=== PATIENT | female | born 1970 | race Caucasian/White ===

== ENCOUNTER 2024-09-20 12:18 | Emergency (ER) | payer OTHER, SELFPAY ==
--- OUTSIDE RECORDS SUMMARY | 2024-09-20 12:20 | XMS_ITS | Clinical Summary ---
Author Organization [facility] Address [address] [place] [address] Care Team Providers Care Pharmacy Student Name Role Phone Gabriela Pappas MD Primary Care Provider + Allergies Active Allergy Reactions Criticality Noted Date Comments Cat Dander Runny Nose 05/19/2017 Watery eyes. Pollen Extracts Runny Nose 05/19/2017 Itchy nose, watery eyes. Medications naproxen (ALEVE) 220 mg tablet Take 1 tablet by mouth every 8 hours if needed. 0 6 Active cetirizine (ZYRTEC) 10 mg tablet Take 10 mg by mouth once daily. 7 Active calcium polycarbophil (FIBERCON) 625 mg tablet Take 1 tablet by mouth once daily. 0 7 Active multivitamin (MVI) tablet Take 1 tablet by mouth once daily. 0 7 Active inhalational spacing deviceIndications: Mild intermittent asthma without complication (HC) For home use. 1 Each 2 Active escitalopram oxalate (LEXAPRO) 5 mg tabletIndications: Perimenopausal vasomotor symptoms Take 1 Tablet (5 mg) by mouth every morning. 90 Tablet 3 4 Active albuterol HFA (PRO-AIR; VENTOLIN; PROVENTIL) 90 mcg/actuation inhalerIndications :History of COVID-19 Inhale 1-2 Puffs by mouth every 4 hours if needed for Shortness of Breath 1st choice. 1 Each 3 4 Active ketoconazole 2% topical (NIZORAL) creamIndications:T inea versicolor Apply topically to affected area(s) once daily. 30 g 5 4 Active Active Problems Problem Noted Date Diagnosed Date Mild intermittent asthma without complication Preventative health care 07/13/2013 Environmental allergies 07/13/2013 Overview (07/13/2013): animals Encounters Date Type Department Care Team Description 09/20/2024 Nurse Triage [facility] [address] [place] [address] Gabriela Pappas MD Back Pain from Last 3 Months Immunizations Immunization Administration Dates Next Due COVID-19 VACCINE SPIKEVAX (M ODERNA 50MCG/0.5ML) 12YO+ PFS 08/29/2023 COVID-19 vaccine (Moderna 50mcg/0.5mL) 12YO+ BIVALENT PF, MDV 05/26/2022 COVID-19 vaccine ([employer]-Bio NTech 30mcg/0.3mL) PF, MDV 11/14/2020,10/24/2020 Influenza Virus, Unspecified 06/09/2005,06/19/20 04 Influenza, IIV3 (Age >=3 years) 04/28/2012,05/22,05/27/1998 Influenza, IIV4 08/29/2023,,03/16/2019,2018,05/07/2016 Influenza, IIV4 (=>6mos) MDV 04/23/2020 Td (Age >=7 Years) 07/03/2000,04/29/2000 Tdap 02/02/2021,05/22/2010 Zoster (Shingrix-RZV, recombinant) 08/29/2023, Family History Medical History Relation Name Comments Good Health Brother Colon polyps Father Hyperlipidemia Father borderline Heart Disease Maternal Grandfather heart attack Other Maternal Grandfather dementi a Stroke Maternal Grandfather at leas t 3 Other Maternal Grandmother Glaucom a; alzheimer's Cancer-breast Mother doing well Dementia Mother Thyroid Disease Mother Diabetes Paternal Grandfather Heart Disease Paternal Grandfather Stroke Paternal Grandfather Colon polyps Paternal Grandmother when ol [place] Stroke Paternal Grandmother Good Health Sister some Rheumatolo gical disorder Good Health Son 1 Horace Other Son 1 Horace mild cleft [place] Allergies Son 2 Edd Psychiatric illness Son 2 Edd possible autism Relation Name Status Comments Brother Alive Father Alive Maternal Grandfather (Age mid 70 's) complications stroke Maternal Grandmother (Age 91) co mplications of alzheimer's Mother Paternal Grandfather (Age 84) [place] Paternal Grandmother (Age 90's) stroke Sister Alive Son 1 Horace Alive Son 2 Edd Alive Social History Tobacco Use Types Packs/Day Years Used Date Smoking Tobacco: Never Smokeless Tobacco: Never Alcohol Use Standard Drinks/Week Comments Yes 0 (1 standard drink = 0.6 oz pure alcohol) 2-3 times a year, occ glass of wine PHQ-2 Answer Date Recorded PHQ-2 TOTAL SCORE 2 08/29/2023 Social Connections Answer Date Recorded Do you often feel lonely or isolated from those around you? 0 08/29/2023 Financial Resource Strain Answer Date R ecorded Difficulty of Paying Living Expenses 3 08/29/2023 Difficulty of Paying Living Expenses Not on file 08/29/2023 Food Insecurity Answer Date Recorded Do you worry your food will run out before you are able to buy more? 1 08/29/2023 Transportation Needs Answer Date Record ed Does lack of transportation keep you from medica l appointments? 1 08/29/2023 Does lack of transportation keep you from work, meetings or getting things that you need? 1 08/29/2023 Housing Stability Answer Date Recorded What is your housing situation today? 1 08/29/2023 Utilities Answer Date Recorded Do you have trouble paying f or utilities (for example, heat, electricity, water, phone)? 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 No issues with delivery. Last Filed Vital Signs Vital Sign Reading Time Taken Comments Blood Pressure 114/72 08/29/2023 12:20 PM PROFESSOR OF BIOSTATISTICS Pulse 80 08/29/2023 12:20 PM PROFESSOR OF BIOSTATISTICS Temperature 37 C (98.6 F) 08/21/2021 11:49 AM PROFESSOR OF BIOSTATISTICS Respiratory Rate 10 04/03/2012 5:31 PM CDT Oxygen Saturation 99% 08/21/2021 11: 47 AM PROFESSOR OF BIOSTATISTICS Inhaled Oxygen Concentration - - Weight 81.1 kg (178 lb 12.8 oz) 024 12:20 PM PROFESSOR OF BIOSTATISTICS Height 161.3 cm (5' 3.5) 08/29/2023 12 :20 PM PROFESSOR OF BIOSTATISTICS Body Mass Index 31.18 08/29/2023 12:20 PM PROFESSOR OF BIOSTATISTICS Plan of Treatment Health Maintenance Due Date Last Done Comments HIV for age 15-65 1985 Hepatitis C screening for ag e 18-79 1988 Pneumococcal series for age 50+ (1 of 1 - PCV) 2020 Mammogram for age 45-75 07/20/2023 07/20/19, 04/06/2021, 06/03/2017, Additional history exists COVID-19 vaccine series ( season) 2024 08/29/2023, 05/26/2022, 11/14/2020, Additional history exists Influenza Vaccine (#1) 2024 , 05/26/2022, 04/23/2020, Additional history exists BMI (ht and wt on same day) for age 18+ 08/29/2024 08/29/2023, 05/26/2022, 02/02/2021, Additional history exists Depression screening for age 12+ 08/29/2024 08/29/2023, 02/02/2021, 08/30/2018, Additional history exists Lipids for age 45-75 02/02/2026 02/02/2021, 05/19/2017, 07/13/2013, Additional history exists Pap test for age 21-65 02/02/2026 , 02/02/2021, 05/07/2016, Additional history exists Tetanus booster 02/02/2031 02/02/2021, 05/04, 07/03/2000, Additional history exists Colonoscopy through age 75 03/23/2031 03/23/2021 Tdap Completed 02/02/2021, 05/22/2010 Zoster (shingles) series for age 50+ Completed 08/29/2023, 05/26/2022 Procedures Procedure Name Priority Date/Time Associated Diagnosis Comments XR MAMMO DAVID BILAT SCREEN Routine 07/20/2022 4:52 PM PROFESSOR OF BIOSTATISTICS Encounter for screening for malignant neoplasm of breast, unspecified screening modality SCAN-COLONOSCOPY 03/23/2021 1:00 PM CDT LIPID PANEL W REFLEX MEASURED LDL Routine 02/02/2021 8:55 AM CDT Routine general medical examination at a [facility] care facility OCCUPATIONAL HEALTH PHYSICIAN THIN PREP PAP SCREEN IMAGED Routine 02/02/2021 8:35 AM CDT Cervical cancer screening from Last 3 Months or Most Recently Relevant to Health Maintenance Results * XR MAMMO DAVID BILAT SCREEN (07/20/2022 4:52 PM PROFESSOR OF BIOSTATISTICS) Anatomical Region Laterality Modality BREASTS, Breast Left, Breast Right Bilateral Mammography Impressions 07/21/2022 12:32 PM PROFESSOR OF BIOSTATISTICS There is no radiographic evidence for malignancy. Recommend annual mammograms. MAMMOGRAM ASSESSMENT: ACR 2 Benign PATIENTS: You will also receive a letter with your examination results in an easy to read format. If you have questions about your results, please contact your referring provider. Narrative 07/21/2022 12:32 PM PROFESSOR OF BIOSTATISTICS For Patients: As a result of the 21st Century Cures Act, medical imaging exams and procedure reports are released immediately into your electronic medical record. You may view this report before your referring provider. If you have questions, please contact your health care provider. XR MAMMO DAVID BILAT SCREEN [[id number]] CLINICAL HISTORY: This is an asymptomatic 51 y.o. patient. INDICATION FOR EXAM: Mammogram Screening. TECHNIQUE: CC & MLO views were obtained. This study was evaluated with the assistance of Computer-Aided Detection. Breast Tomosynthesis was used in interpretation. COMPARISON FILMS: Yes 04/06/21 05/23/17 FINDINGS: The breasts are heterogeneously dense, which may obscure small masses. No suspicious masses or microcalcifications. There are benign appearing mass(es). us Gabriela Pappas MD MAMMO Final Re sult * SCAN-COLONOSCOPY (03/23/2021 1:00 PM CDT) Narrative Procedure Note Sanjeev Larson MD - 03/23/2021 12:03 PM CDT [facility], [address], [place] [address] Patient Name: Carlyle Alba Gender: Female Exam Date: 03/23/2021 Visit Number: [id number] Age: 50 Years 6 Months Date of : 1970 Attending MD: Sanjeev Larson MD Medical Record#: [id number] ----- Procedure: Colonoscopy Indications: Family history of polyps in patient's multiple relatives. Referring MD: Gabriela Pappas MD Primary MD: Gabriela Pappas MD Medications: Admitting Medications: 0.9% Normal Saline at TKO Intra Procedure Medications: Patient received monitored anesthesia care. Complications: No immediate complications Procedure: An examination of the heart and lungs was performed and found to be withinacceptable limits. The patient was therefore deemed a reasonablecandidate for endoscopy and monitored anesthesia care. The risks and benefits of the procedure were explained to the patient.After obtaining informed consent, the patient received monitoredanesthesia care and I passed the scope without difficulty via the rectum to the ileum. The appendiceal orificeand ic valve were identified. The scope was retroflexed during theexamination The quality of the prep was good (Miralax/Gatorade/2 tabletsBisacodyl/Magnesium Citrate). This was a complete examination throughout the entire colon. Findings: Diverticulosis. Location: - sigmoid. Size: small. Quantity:few. Anal canal: internal hemorrhoid(s) Remainder of the exam is normal. Impression: Family history of polyps in the colon Diverticulosis of colon without diverticulitis Hemorrhoids, internal Exam otherwise normal Plan: Repeat colonoscopy in 5 years. We will attempt to contact you at appropriate intervals via U.S. mail. Wemay not be able to find you or contact you at that time, therefore youshould know that the responsibility for following our recommendation restswith you. If you don't hear from us at the time your procedure is due,please contact our office to schedule an appointment. If your contactinformation should change, please contact our office so that we can updateyour records. Electronically signed by: Sanjeev Larson MD 03/23/2021 Vital Signs: Date Time Systolic Diastolic Height Weight BMI 03/23/2021 12:31 PM 99 62 63 in 167.60 29.70 03/23/2021 12:49 PM 101 65 NA 167.60 29.70 Race: Ethnicity: Not or Preferred Language: Italian cc: Gabriela Pappas MD cc: Gabriela Pappas MD [facility] [phone] us Sanjeev Larson MD OTHER Final R esult * LIPID PANEL W REFLEX MEASURED LDL (02/02/2021 8:55 AM CDT) CHOLESTEROL,TOTAL 174 100 - 199 mg/dL 02/02/2021 3:32 PM CDT [facility] TRIGLYCERIDES 49 <150 mg/dL 02/02/2021 3:32 PM CDT [facility] HDL CHOLESTEROL 65 >40 mg/dL 3:32 PM CDT [facility] NON-HDL CHOLESTEROL 109 <145 mg/dl 02/02/2021 3:32 PM CDT [facility] CHOL/HDL RATIO 2.68 <4.50 02/02/2021 3:32 PM CDT [facility] LDL CHOLESTEROL 99 <=130 mg/dL 02/02/2021 3:32 PM CDT [facility] VLDL CHOLESTEROL 10 mg/dL 02/03/20 3:32 PM CDT [facility] PROVIDER ORDERED STATUS FASTING 02/02/2021 3:32 PM CDT [facility] Blood BLOOD SPECIMEN / Unknown Venipuncture / Unknown 02/02/2021 8:55 AM CDT 02/02/2021 8:55 AM CDT us Gabriela Pappas MD CHEMISTRY Final Re sult [facility] [address] [place] [address], [place] * OCCUPATIONAL HEALTH PHYSICIAN THIN PREP PAP SCREEN IMAGED (02/02/2021 8:35 AM CDT) Case Report Gynecologic Cytology Report Case: [id number] Authorizing Provider: Gabriela Pappas MD Collected: 02/02/2021 0835 Ordering Location: [facility], [facility] Received: 02/02/2021 0842 Clinic First Screen: Odette Mcmillan Specimen: OCCUPATIONAL HEALTH PHYSICIAN ThinPrep Vial Screening, Cervical 02/11/2021 8:49 AM CDT [facility] INTERPRETATION/ RESULT NEGATIVE FOR INTRAEPITHELIAL LESION OR MALIGNANCY (NIL) (none) 02/11/2021 8:49 AM CDT [facility] IMEN ADEQUACY Satisfactory for evaluation Endocervical component present 02/11/2021 8:49 AM CDT [facility] HPV REQUEST HPV and PAP 02/11/2021 8:49 AM CDT [facility] Date of LMP January 28, 2021 02/11/2021 8:49 AM CDT [facility] Last Pap Date 05/07/16 02/11/2021 8:49 AM CDT [facility] Last Pap Result NIL 8:49 AM CDT [facility] Abnormal Pap or [place] Bx in last 5 years No 02/11/2021 8:49 AM CDT [facility] Menstrual Status Regular Periods 02/11/2021 8:49 AM CDT [facility] [place] Bx Done Today No 02/11/2021 8:49 AM CDT [facility] Additional Information None given 02/11/2021 8:49 AM CDT [facility] Comment: Cytology is screened at [facility] - [address], [place] [address] and [facility] - [address], [place] [address] and [facility] - [address] [place] [id number] Interpreted at [facility] - [address] [place] [id number] Automated Review Successful 02/11/2021 8:49 AM T [facility] Comment:Specimen processed s uccessfully by automated fugitive detective device, ThinPrep Imaging System, [employer] ANCILLARY TESTING OCCUPATIONAL HEALTH PHYSICIAN HPV Ordered, Please see separate report 02/11/2021 8:49 AM CDT [facility] Note The pap test is a screening technique, not a diagnostic procedure. It is used primarily to screen for squamous cancers and precursor lesions. Published studies have shown that it is subject to both false negative and false positive results. The pap test should not be used as the sole means to diagnose or exclude pre-malignant and malignant lesions. 02/11/2021 8:49 AM CDT [facility] Other (Cervical) Non-Blood / Unknown 02/02/2021 8:35 AM CDT 02/02/2021 8:42 AM CDT us Gabriela Pappas MD PATHOLOGY/CYTOLOGY Final Result [facility] [address] [place] [address], [place] from Last 3 Months or Most Recently Relevant to Health Maintenance Care Teams Pharmacy Student Relationship Specialty Start [place] [address] [place] [address] PCP - General Family Practice 07/19/13
[2024-09-20 12:38] VITALS: BP 122/77; PULSE 79; RESP 16; TEMP 37.1; O2SAT 100; BMI 31.9
[2024-09-20 13:23] LABS: Appearance Urine Clear (Clear); Bilirubin Urine Negative (Negative); Blood Urine Negative (Negative); Color Urine Light yellow (Yellow); Glucose Urine Negative (Negative); Ketones Urine Negative (Negative); Leukocyte Esterase Urine 1+ (Negative); Nitrite Urine Negative (Negative); Protein Urine Negative (Negative); Urobilinogen Urine 0.2 (0.2-1.0)
[2024-09-20 13:38] LABS: RBC Urine 0-2 (0-2); WBC Urine 0-2 (0-5)
[2024-09-20 14:32] VITALS: BP 110/64; PULSE 68; RESP 20; O2SAT 99
--- NOTE | 2024-09-20 14:43 | CRLHL7_ITS ---
For Patients: As a result of the 21st Century Cures Act, medical imaging exams and procedure reports are released immediately into your electronic medical record. You may view this report before your referring provider. If you have questions, please contact your health care provider. INDICATION: Right flank pain COMPARISON: None TECHNIQUE: CT examination of the abdomen and pelvis was performed without intravenous contrast. Thin section axial images were obtained from the lung bases through the pubic symphysis. Oral contrast was not administered. Please note that all CT scans at this facility use dose modulation, iterative reconstruction, and/or weight-based dosing when appropriate to reduce radiation dose to as low as reasonably achievable. FINDINGS: LUNG BASES: The lung bases as visualized appear normal.The heart size is normal at the lung bases. LIVER/BILIARY SYSTEM:The liver is normal in size and configuration given the lack of intravenous contrast. There is no visible focal mass and there is no intra- or extra hepatic biliary ductal dilatation.The gallbladder is distended. There is no clearly visible wall thickening or pericholecystic fluid. There is a stone within the gallbladder. The extrahepatic duct is prominent measuring 9 millimeters from the coronal plane and there is a small calcification distally which may be within the distal duct or more likely recently passed into the duodenum. Consider sonography for further evaluation. ADRENALS: Normal non-contrast appearance KIDNEYS, URETERS and BLADDER:The kidneys appear normal given lack of intravenous contrast. No visible mass, calculus or hydronephrosis. The ureters and bladder as visualized appear normal. SPLEEN:Normal non-contrast appearance. PANCREAS: Normal non-contrast appearance. RETROPERITONEUM and MESENTERY: There is no mass, adenopathy or aortic aneurysm. GASTROINTESTINAL SYSTEM: There is no evidence of diverticulitis, colitis, mechanical obstruction, or appendicitis. The small bowel as visualized appears normal. PELVIS: No mass, adenopathy or free fluid. OSSEOUS STRUCTURES and ABDOMINAL WALL: There is an age-appropriate appearance of the osseous structures.Tiny fat containing umbilical hernia OTHER: No free fluid or free air. IMPRESSION: 1. Distended gallbladder but no wall thickening or pericholecystic fluid noted. Solitary small stone in the gallbladder. Mildly dilated extrahepatic duct and possible stone at or near the distal duct, probably within the duodenum. Findings suggest the possibility of a recently passed stone. Consider sonography of the biliary system for further evaluation. 2. Examination is otherwise overall unremarkable without other potential visible cause for pain Please note that all CT scans at this facility use dose modulation, iterative reconstruction, and/or weight-based dosing when appropriate to reduce radiation dose to as low as reasonably achievable. Dictated by Christiano Randall MD @ 09/20/2024 3:20:46 PM (Electronically Signed)
--- NOTE | 2024-09-20 15:02 | ED_ITS ---
HPI - General Adult General Chief complaint: Flank Pain Stated complaint: Kidney Stones Time Seen by Provider: 09/20/24 13:28 History of Present Illness HPI narrative: This 54-year-old female comes in reporting pain in her right flank that began yesterday. She has had some associated nausea with vomiting. She does not report any injury event or strenuous activity. She does not have any symptoms of dysuria and reports no personal or family history of kidney stones. She arrives here with normal vital signs. Related Data Home Medications ?Medication ?Instructions ?Recorded ?Confirmed escitalopram oxalate 5 mg tablet 5 mg PO QDAY 09/03/24 09/20/24 (Lexapro) Previous Rx's ?Medication ?Instructions ?Recorded hydrocodone 5 mg-acetaminophen 325 1 tab PO Q4-6H PRN pain #15 tabs 09/20/24 mg tablet ketorolac 10 mg tablet 10 mg PO TID 5 days #15 tabs 09/20/24 ondansetron HCl 4 mg tablet 4 mg PO Q6H #15 tabs 09/20/24 Allergies Allergy/AdvReac Type Severity Reaction Status Date / Time No Known Drug Allergies Allergy Verified 09/20/24 12:37 Review of Systems Status of ROS: Reports: 10 or more systems reviewed and unremarkable except as noted in History and below Narrative: Constitutional: No fevers, no weight gain or loss. Eyes: No discharge. No vision changes. HENT: No congestion, no sore throat, no ear pain. Cardiovascular: No chest pain, no palpitations. Respiratory: No shortness of breath, no wheezes, no cough. Gastrointestinal: No abdominal pain, no diarrhea. Right flank pain. Genitourinary: No dysuria, no hematuria. Musculoskeletal: Normal range of motion. Skin: No rashes, no pruritis. Neurological: No dizziness, weakness, sensory change, speech change. Endo/Heme/Allergies: No bruising or bleeding. No polydipsia. Pysch: no suicidality, no anxiety, no insomnia. All other systems reviewed and are negative. Exam Narrative: Exam Narrative: Constitutional: Well-developed, well-nourished, no acute distress. HEENT: Normocephalic, atraumatic. Neck: Normal range of motion. Nontender. Supple. Heart: Regular. No murmurs. Normal rate. Intact distal pulses. Lungs: Clear to auscultation. No chest discomfort. No wheezes, rhonchi, or rales. Abdomen: Normal bowel sounds. Nontender currently. No rebound tenderness. Genitalia: Deferred. Back: No midline tenderness. Normal range of motion. Extremities: Normal range of motion. No injury. Skin: Intact. No rash. Warm. No erythema or pallor. Neurologic: No altered sensation. No weakness. Alert and oriented. Psychiatric: No suicidality. No anxiety or depression. No insomnia. Nursing notes and vitals signs are reviewed. Const: Vital Signs, click to edit/add: Vital Signs - 24 hr 09/20/24 12:38 09/20/24 14:32 Temperature 98.8 F Pulse Rate [Pulse Oximeter] 79 68 Respiratory Rate 16 20 Blood Pressure [Ri t Upper Arm] 122/77 110/64 Pulse Oximetry 100 99 Oxygen Delivery Me thod Room Air Room Air Course Vital Signs Vital signs: Initial Vital Signs Temperature 98.8 F 09/20/24 12:38 Temperature Source Temporal Artery Scan 09/20/24 12:38 Pulse Rate 79 09/20/24 12:38 Pulse Rhythm Regular 09/20/24 12:38 Respiratory Rate 16 09/20/24 12:38 Blood Pressure 122/77 09/20/24 12:38 Blood Pressure Mean 92 09/20/24 12:38 Blood Pressure Position Sitting 09/20/24 12:38 Pulse Oximetry 100 09/20/24 12:38 Oxygen Delivery Method Room Air 09/20/24 12:38 Vital Signs Temperature 98.8 F 09/20/24 12:38 Pulse Rate 79 09/20/24 12:38 Respiratory Rate 16 09/20/24 12:38 Blood Pressure 122/77 09/20/24 12:38 Pulse Oximetry 100 09/20/24 12:38 Oxygen Delivery Method Room Air 09/20/24 12:38 Temperature 98.8 F 09/20/24 12:38 Pulse Rate 68 09/20/24 14:32 Respiratory Rate 20 09/20/24 14:32 Blood Pressure 110/64 09/20/24 14:32 Pulse Oximetry 99 09/20/24 14:32 Oxygen Delivery Method Room Air 09/20/24 14:32 Medical Decision Making MDM Narrative Medical decision making narrative: This patient came in with right flank pain sometimes extending around along her ribs on the right side. She wonders if she might be having a kidney stone. She did have some nausea and vomiting. Currently her pain is more minimal but she did receive an oral dose of Toradol. CT scan of the abdomen and pelvis is obtained and shows no sign of kidney stone however there is a stone in the gallbladder and the radiologist is suspecting that she may have passed another stone through the common bile duct into her bowel. I relayed these findings with the patient and recommended that she follow-up with surgery clinic for ongoing management. She is okay to be discharged home. I did provide prescriptions for Toradol, [place], and Flexeril. Lab Data Labs: Lab Results 09/20/24 Range/Units 13:15 Urine Color Light yellow (Yellow) Urine Appearance Clear (Clear) Urine pH 6.0 (5.0-8.5) Ur Specific [place] 1.010 (1.000-1.030) Urine Protein Negative (Negative) Urine Glucose (UA) Negative (Negative) Urine Ketones Negative (Negative) Urine Blood Negative (Negative) Urine Nitrite Negative (Negative) Urine Bilirubin Negative (Negative) Urine Urobilinogen 0.2 (0.2-1.0) Ur Leukocyte Esterase 1+ A (Negative) Urine RBC 0-2 (0-2) Urine WBC 0-2 (0-5) Ur Squamous Epith Cells None (None-Few) Urine Bacteria None (None) Imaging Data CT scan - abdomen: Radiologist's impression: 1. Distended gallbladder but no wall thickening or pericholecystic fluid noted. Solitary small stone in the gallbladder. Mildly dilated extrahepatic duct and possible stone at or near the distal duct, probably within the duodenum. Findings suggest the possibility of a recently passed stone. Consider sonography of the biliary system for further evaluation. 2. Examination is otherwise overall unremarkable without other potential visible cause for pain Discharge Plan Discharge Clinical Impression: Cholelithiasis Patient Disposition: Home w/ Parent or Adult Condition: Stable Additional Instructions: Take medication as needed and indicated. Follow-up with surgery clinic for ongoing management. Call [phone] for appointment. Return if worsening. Prescriptions: New hydrocodone-acetaminophen 5-325 mg tablet 1 tab PO Q4-6H PRN (Reason: pain) Qty: 15 0RF ondansetron HCl 4 mg tablet 4 mg PO Q6H Qty: 15 0RF ketorolac 10 mg tablet 10 mg PO TID 5 Days Qty: 15 0RF No Action escitalopram oxalate [Lexapro] 5 mg tablet 5 mg PO QDAY Follow Up/Referrals: Gabriela Pappas MD [Primary Care Provider] - Stand Alone Forms: [employer] Info Instructions
--- OUTSIDE RECORDS SUMMARY | 2024-09-20 15:16 | XMS_ITS | Clinical Summary ---
Author Organization [facility] Address [address] [place] [id number] Care Team Providers Care Refrigerator Assembler Name Role Phone Gabriela Pappas MD Primary [...] Department Care Team Description 09/20/2024 Nurse Triage [facility] [address] [place] [address] Gabriela Pappas MD Back Pain from Last 3 Months Immunizations Immunization Administration Dates Next Due COVID-19 VACCINE SPIKEVAX (M ODERNA 50MCG/0.5ML) 12YO+ PFS 08/29/2023 COVID-19 vaccine (Moderna 50mcg/0.5mL) 12YO+ BIVALENT PF, MDV 05/26/2022 COVID-19 vaccine (Present-Bio NTech 30mcg/0.3mL) PF, MDV 11/14/2020,10/24/2020 Influenza Virus, [...] Horace Other Son 1 Horace mild cleft bois forte te Allergies Son 2 Edd Psychiatric illness [...] on file Legal Sex Female 8:01 AM PRESS BOX CUSTODIAN Gender Identity Not on file Sexual Orientation [...] Comments Blood Pressure 114/72 08/29/2023 12:20 PM PRESS BOX CUSTODIAN Pulse 80 08/29/2023 12:20 PM PRESS BOX CUSTODIAN Temperature 37 C (98.6 F) 08/21/2021 11:49 AM PRESS BOX CUSTODIAN Respiratory Rate 10 04/03/2012 5:31 PM CDT Oxygen Saturation 99% 08/21/2021 11: 47 AM PRESS BOX CUSTODIAN Inhaled Oxygen Concentration - - Weight 81.1 kg (178 lb 12.8 oz) 024 12:20 PM PRESS BOX CUSTODIAN Height 161.3 cm (5' 3.5) 08/29/2023 12 :20 PM PRESS BOX CUSTODIAN Body Mass Index 31.18 08/29/2023 12:20 PM PRESS BOX CUSTODIAN Plan of Treatment Health Maintenance Due Date [...] DAVID BILAT SCREEN Routine 07/20/2022 4:52 PM PRESS BOX CUSTODIAN Encounter for screening for malignant neoplasm of breast, unspecified screening modality SCAN-COLONOSCOPY 03/23/2021 1:00 PM CDT LIPID PANEL W REFLEX MEASURED LDL Routine 02/02/2021 8:55 AM CDT Routine general medical examination at a [facility] care facility EMPLOYEE RELATIONS DIRECTOR THIN PREP PAP SCREEN IMAGED Routine 02/02/2021 8:35 AM CDT Cervical cancer screening from Last 3 Months or Most Recently Relevant to Health Maintenance Results * XR MAMMO DAVID BILAT SCREEN (07/20/2022 4:52 PM PRESS BOX CUSTODIAN) Anatomical Region Laterality Modality BREASTS, Breast Left, Breast Right Bilateral Mammography Impressions 07/21/2022 12:32 PM PRESS BOX CUSTODIAN There is no radiographic evidence for malignancy. Recommend annual mammograms. MAMMOGRAM ASSESSMENT: ACR 2 Benign PATIENTS: You will also receive a letter with your examination results in an easy to read format. If you have questions about your results, please contact your referring provider. Narrative 07/21/2022 12:32 PM PRESS BOX CUSTODIAN For Patients: As a result of the 21st Century Cures Act, medical imaging exams and procedure reports are released immediately into your electronic medical record. You may view this report before your referring provider. If you have questions, please contact your health care provider. XR MAMMO DAVID BILAT SCREEN [[id number]] CLINICAL HISTORY: This is an asymptomatic 51 [...] Larson MD - 03/23/2021 12:03 PM CDT [facility] [facility] [facility], [address], [place] [address] Patient Name: Carlyle Alba Gender: Female Exam Date: 03/23/2021 Visit Number: [id number] Age: 50 Years 6 Months Date of : 1970 Attending MD: Sanjeev Larson MD Medical Record#: [id number] ----- Procedure: Colonoscopy Indications: Family history of [...] 29.70 Race: Ethnicity: Not or Preferred Language: Albanian cc: Gabriela Pappas MD cc: Gabriela Pappas MD [facility] [phone] us Sanjeev Larson MD OTHER Final R esult * LIPID PANEL W REFLEX MEASURED LDL (02/02/2021 8:55 AM CDT) CHOLESTEROL,TOTAL 174 100 - 199 mg/dL 02/02/2021 3:32 PM CDT [facility] TRIGLYCERIDES 49 <150 mg/dL 02/02/2021 3:32 PM CDT [facility] HDL CHOLESTEROL 65 >40 mg/dL 3:32 PM CDT [facility] NON-HDL CHOLESTEROL 109 <145 mg/dl 02/02/2021 3:32 PM CDT [facility] CHOL/HDL RATIO 2.68 <4.50 02/02/2021 3:32 PM CDT [facility] LDL CHOLESTEROL 99 <=130 mg/dL 02/02/2021 3:32 PM CDT [facility] VLDL CHOLESTEROL 10 mg/dL 02/03/20 3:32 PM CDT [facility] PROVIDER ORDERED STATUS FASTING 02/02/2021 3:32 PM CDT [facility] Blood BLOOD SPECIMEN / Unknown Venipuncture / Unknown 02/02/2021 8:55 AM CDT 02/02/2021 8:55 AM CDT us Gabriela Pappas MD CHEMISTRY Final Re sult [facility] [address] [place] [address], [place] * EMPLOYEE RELATIONS DIRECTOR THIN PREP PAP SCREEN IMAGED (02/02/2021 8:35 AM CDT) Case Report Gynecologic Cytology Report Case: [id number] Authorizing Provider: Gabriela Pappas MD Collected: 02/02/2021 0835 Ordering Location: [facility] Received: 02/02/2021 0842 Clinic First Screen: Odette Mcmillan Specimen: EMPLOYEE RELATIONS DIRECTOR ThinPrep Vial Screening, Cervical 02/11/2021 8:49 AM CDT [facility] INTERPRETATION/ RESULT NEGATIVE FOR INTRAEPITHELIAL LESION OR MALIGNANCY (NIL) (none) 02/11/2021 8:49 AM CDT [facility] IMEN ADEQUACY Satisfactory for evaluation Endocervical component present 02/11/2021 8:49 AM CDT [facility] HPV REQUEST HPV and PAP 02/11/2021 8:49 AM CDT [facility] Date of LMP January 28, 2021 02/11/2021 8:49 AM CDT [facility] Last Pap Date 05/07/16 02/11/2021 8:49 AM CDT [facility] Last Pap Result NIL 8:49 AM CDT [facility] Abnormal Pap or Friendship Bx in last 5 years No 02/11/2021 8:49 AM CDT [facility] Menstrual Status Regular Periods 02/11/2021 8:49 AM CDT [facility] Friendship Bx Done Today No 02/11/2021 8:49 AM CDT [facility] Additional Information None given 02/11/2021 8:49 AM CDT [facility] Comment: Cytology is screened at [facility] - [address], [place] [address] and [facility] - [address], [place] [address] and [facility] - [address] [place] [id number] Interpreted at [facility] - [address] [place] [id number] Automated Review Successful 02/11/2021 8:49 AM T [facility] Comment:Specimen processed s uccessfully by automated talent consultant device, ThinPrep Imaging System, [employer] ANCILLARY TESTING EMPLOYEE RELATIONS DIRECTOR HPV Ordered, Please see separate report 02/11/2021 8:49 AM CDT [facility] Note The pap test is a [...] and malignant lesions. 02/11/2021 8:49 AM CDT [facility] Other (Cervical) Non-Blood / Unknown 02/02/2021 8:35 AM CDT 02/02/2021 8:42 AM CDT us Gabriela Pappas MD PATHOLOGY/CYTOLOGY Final Result [facility] [address] [place] [address], [place] from Last 3 Months or Most Recently Relevant to Health Maintenance Care Teams Refrigerator Assembler Relationship Specialty [place] [address] [place] [address] PCP - General Family Practice 07/19/13
== END 2024-09-20 16:52 | disposition home or self-care (01) ==
PROVIDERS: Emergency Provider Emergency Medicine Emergency Medical Services; PCP Family Medicine
DX: K80.20 Calculus of gallbladder without cholecystitis without obstruction (principal)
CPT/HCPCS: 74176; 81001; 81003; 87086; 99284

== ENCOUNTER 2025-06-24 13:08 | Emergency (ER) | payer OTHER, SELFPAY ==
[2025-06-24] VITALS (18 sets, daily range): BP systolic 102–106; BP diastolic 59–71; PULSE 74–120; RESP 16–20; TEMP 37.2; O2SAT 91–100; BMI 30.3
--- OUTSIDE RECORDS SUMMARY | 2025-06-24 13:16 | XMS_ITS | Clinical Summary ---
Author Organization [facility] Address [address] [place] [address] Care Team Providers Care Certified Nurses Aide Name Role Phone Dory Ocampo MD Primary Care Provider Allergies Active AllergyReactionsCriticalityNoted DateCommentsCat DanderRunny Nose 05/19/2017 Watery eyes. Pollen ExtractsRunny Nose05/19/2017 Itchy nose, watery eyes. Medications MedicationSigDispense QuantityRefillsLast FilledStart DateEnd DateStatus calcium polycarbophil (FIBERCON) 625 mg tablet Take 1 tablet by mouth once daily.Active multivitamin (MVI) tablet Take 1 tablet by mouth once daily.Active escitalopram oxalate 5 mg tablet Indications:Perimenopausal vasomotor symptomsTake 0.5 Tablets (2.5 mg) by mouth once daily in the morning. 45 Tablet 5Active albuterol HFA 90 mcg/actuation inhaler Indications:Mild intermittent asthma without complication (HC)Inhale 1-2 Puffs by mouth every 4 hours if needed for Shortness Of Breath or Wheezing.10/31/2024 Active Active Problems ProblemNoted DateDiagnosed DatePerimenopausal vasomotor xxvyuhzj96/30/2025 Aorzemanetskio91/24/2025Mild intermittent asthma without kfsigasxjfaw11/26/2024 Environmental /10/2014 Overview (07/13/2013): animals Encounters DateTypeDepartmentCare LwchAnxfskerirj24/22/2025Nurse Triage [facility] [place], [place] [address] [place] [address] Dory Ocampo MD Back Painfrom Last 3 Months Immunizations ImmunizationAdministration DatesNext DueCOVID-19 VACCINE SPIKEVAX (MODERNA 50MCG/0.5ML) 12YO+ PFS4COVID-19 vaccine (Moderna 50mcg/0.5mL) 12YO+ BIVALENT PF, MDV12COVID-19 vaccine (Pfizer-BioNTech 30mcg/0.3mL) PF, MDV 11/14/2020,10/24/2020Influenza Virus, Apkkvliular12/07/2005,06/19/2004Influenza, IIV3 (Age >=3 years)04/28/2012,05/22/2010,05/27/1998Influenza, VVZ936, 05/26/2022,03/16/2019,08/30/2018,05/07/2016Influenza, IIV4 (=>6mos) MDV 04/23/2020Pneumococcal Conj 20-valent (Prevnar 20)10/31/2024Td (Age >=7 Years) 07/03/2000,04/29/2000Tdap02/02/2021,05/22/2010Zoster (Shingrix-RZV, recombinant) 08/29/2023,05/26/2022 Family History Medical HistoryRelationNameCommentsGood HealthBrotherBrettColon polypsFather dennyHyperlipidemiaFatherdennyborderlineAlzheimer's diseaseMaternal Grandfather PaulCholelithiasisMaternal GrandfatherPaulDrug AbuseMaternal GrandmotherBerniece Rheum arthritisMaternal GrandmotherBernieceAnxiety disorderMotherKaren Cancer-breastMotherKarenDementiaMotherKarenDepressionMotherKarenThyroid Disease MotherKarenDiabetesPaternal GrandfatherLawrenceHeart DiseasePaternal Grandfather LawrenceStrokePaternal GrandfatherLawrenceColon polypsPaternal GrandmotherMarvel when olderStrokePaternal GrandmotherMarvelGood HealthSisterMichelleLupusSister MaryjoGood HealthSon 1DylanAllergiesSon 2BrycePsychiatric illnessSon 2Bryce AutismRelationNameStatusCommentsBrotherBrettAliveFatherdennyAliveMaternal GrandfatherPaulDeceasedcomplications strokeMaternal GrandmotherBernieceDeceased (Age 91)complications of alzheimer'sMotherKarenDeceased (Age 80)Paternal GrandfatherLawrenceDeceasedstrokePaternal GrandmotherMarvelDeceasedstrokeSister MichelleAliveSon 1DylanAliveSon 2BryceAlive Social History Tobacco UseTypesPacks/DayYears UsedDateSmoking Tobacco: NeverSmokeless Tobacco: NeverAlcohol UseStandard Drinks/WeekCommentsYes0 (1 standard drink = 0.6 oz pure alcohol)2-3 times a year, occ glass of winePHQ-2AnswerDate RecordedPHQ-2 TOTAL XXWKU788Social ConnectionsAnswerDate RecordedDo you often feel lonely or isolated from those around you?Financial Resource StrainAnswerDate RecordedDifficulty of Paying Living Ocefzwbc115/23/2025Difficulty of Paying Living ExpensesNot on file09/23/2024Food InsecurityAnswerDate RecordedDo you worry your food will run out before you are able to buy more? 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 No issues with delivery. Last Filed Vital Signs Vital SignReadingTime TakenCommentsBlood Zvafmqtg395/6005 4:32 PM CDT Gkhvj0195 4:32 PM MODEophebcfcaq68 ??C (98.6 ??F)08/21/2021 11:49 AM LITERACY COACH Respiratory Ajns851411/02/2024 4:32 PM CDTOxygen Aeiccnsgmr07%11/02/2024 4:32 PM CDTInhaled Oxygen Concentration--Tjltgk17.9 kg (174 lb)10/31/2024 7:08 AM CDT Kcttks935.8 cm (5' 3.3)11/02/2024 4:32 PM CDTBody Mass Index30.53010/31/2024 7:08 AM CDT Plan of Treatment Health MaintenanceDue DateLast DoneCommentsHepatitis B series for 19+ (1 of 3 - 19+ 3-dose series)1989COVID-19 vaccine series (2024- season) , 05/26/2022, 11/14/2020, Additional history existsInfluenza Vaccine (#1), 05/26/2022, 04/23/2020, Additional history existsDepression screening for age 12+, 09/24/2024, 08/29/2023, Additional history existsBMI (ht and wt on same day) for age 18+ , 10/03/2024, 09/24/2024, Additional history existsMammogram for age 45-7506/, 07/20/2022, 04/06/2021, Additional history existsPap test for age 21-6508/2021, 02/02/2021, 05/07/2016, Additional history existsLipids for age 45-750/, 02/02/2021, 05/19/2017, Additional history existsTetanus whulaeq35, 05/22/2010, 07/03/2000, Additional history existsColonoscopy through age 75 SV vaccine for adults or (1 - 1-dose 75+ series) 2045Zoster (shingles) series for age 50+Ejxlzyzlj96/26/2024, 05/26/2022HIV for age 15-54Slcmimcty18/30/2025Hepatitis C screening for age 18-79Completed 10/31/2024Pneumococcal series for age 50+Wovsainkp38/30/2025 Procedures Procedure NamePriorityDate/TimeAssociated DiagnosisCommentsXR MAMMO DAVID BILAT RPIDSQDjilgyg78/03/2025 4:56 PM CDT Screening mammogram for breast cancer ANTI HIV 1/6Ouejxzy34/30/2025 7:53 AM CDT Routine screening for STI (sexually transmitted infection) ANTI EPMKqmlpfr11/30/2025 7:53 AM CDT Routine screening for STI (sexually transmitted infection) LIPID PANEL W REFLEX MEASURED AJCJsdbzbx70/30/2025 7:53 AM CDT Annual physical exam Lipid screening SCAN-YESQHUUUSKM06/20/2021 1:00 PM CDT SUCCESS COACH THIN PREP PAP SCREEN AODMFGFqttomi15/02/2021 8:35 AM CDT Cervical cancer screening from Last 3 Months or Most Recently Relevant to Health Maintenance Results * XR MAMMO DAVID BILAT SCREEN (12/04/2024 4:56 PM CDT)Anatomical RegionLaterality ModalityBREASTS, Breast Left, Breast RightBilateralMammographySpecimen (Source)Anatomical Location / LateralityCollection Method / VolumeCollection TimeReceived Time Impressions 12/05/2024 2:09 PM CDT There is no radiographic evidence for malignancy. Recommend annual mammograms. MAMMOGRAM ASSESSMENT: ??ACR 1 Negative PATIENTS: You will also receive a letter with your examination results in an easy to read format. ??If you have questions about your results, please contact your referring provider. Narrative 12/05/2024 2:09 PM CDT For Patients: As a result of the Century Cures Act, medical imaging exams and procedure reports are released immediately into your electronic medical record. You may view this report before your referring provider. If you have questions, please contact your health care provider. XR MAMMO DAVID BILAT SCREEN [[id number]] CLINICAL HISTORY: ??This is an asymptomatic 54 y.o. patient. INDICATION FOR EXAM: Mammogram Screening. TECHNIQUE: CC and MLO views were obtained. ??This study was evaluated with the assistance of Computer-Aided Detection. Breast Tomosynthesis was used in interpretation. COMPARISON FILM: Yes 07/20/22 [facility] 04/06/21 [employer] FINDINGS: ??The breasts are heterogeneously dense, which may obscure small masses. There are no dominant masses, suspicious micro calcifications or areas of architectural distortion. Authorizing ProviderResult TypeResult StatusTifmary Abi Ocampo MDMAMMOFinal Result * LIPID PANEL W REFLEX MEASURED LDL (10/31/2024 7:53 AM CDT)ComponentValueRef RangeTest MethodAnalysis TimePerformed AtPathologist SignatureCHOLESTEROL, HRAAI659<200 mg/dL11/01/2024 6:15 AM CDTQUEST HEPJYNYOHVNKKDCVMQKJVOWO14<150 mg/dL11/01/2024 6:15 AM CDTQUEST DIAGNOSTICSHDL TUQEOOEYAMN31> OR = 50 mg/dL 11/01/2024 6:15 AM CDTQUEST DIAGNOSTICSNON HDL RYGYMHIXXEL479<130 mg/dL (calc) 11/01/2024 6:15 AM CDTQUEST DIAGNOSTICSComment: For patients with diabetes plus 1 major ASCVD risk factor, treating to a non-HDL-C goal of <100 mg/dL (LDL-C of <70 mg/dL) is considered a therapeutic option. CHOL/HDLC RATIO2.6<5.0 (calc)11/01/2024 6:15 AM [facility] LDL-FGKYOZXXYIO27ur/dL (calc)11/01/2024 6:15 AM [facility] DIAGNOSTICSComment: Reference range: <100 Desirable range <100 mg/dL for primary prevention; <70 mg/dL for patients with CHD or diabetic patients with > or = 2 CHD risk factors. LDL-C is now calculated using the Rowan calculation, which is a validated novel method providing better accuracy than the Friedewald equation in the estimation of LDL-C. Cecilio GARCIA et al. JAMIE. 2013;310(19): 3245-6283 (http://education.Screaming [employer]/faq/QOP891) Specimen (Source)Anatomical Location / LateralityCollection Method / Volume Collection TimeReceived TimeBloodBLOOD SPECIMEN / UnknownNon-Lab Venipuncture / Octkmru1510/31/2024 7:53 AM CDT10/31/2024 7:53 AM CDT Narrative Authorizing ProviderResult TypeResult StatusTiffanjoanne Ocampo MDCHEMISTRY Final ResultPerforming OrganizationAddressCity/State/ZIP CodePhone Number [facility] [address] [address], * ANTI HCV (10/31/2024 7:53 AM CDT)ComponentValueRef RangeTest MethodAnalysis TimePerformed AtPathologist SignatureHEPATITIS C ANTIBODYNON-REACTIVE NON-OKFFZGEI59/01/2025 1:29 PM [facility] DIAGNOSTICSComment: HCV antibody was non-reactive. There is no laboratory evidence of HCV infection. In most cases, no further action is required. However, if recent HCV exposure is suspected, a test for HCV RNA (test code 24155) is suggested. For additional information please refer to http://education.trueEX/faq/WGZ02v8 (This link is being provided for informational/ educational purposes only.) Specimen (Source)Anatomical Location / LateralityCollection Method / Volume Collection TimeReceived TimeBloodBLOOD SPECIMEN / UnknownNon-Lab Venipuncture / Tcjmask8710/31/2024 7:53 AM CDT10/31/2024 7:53 AM CDT Narrative Authorizing ProviderResult TypeResult StatusTifmary Alex Ocampo MDSEND OUTS Final ResultPerforming OrganizationAddressCity/State/ZIP CodePhone Number [facility] [address] [place] [address], * ANTI HIV 1/2 (10/31/2024 7:53 AM CDT)ComponentValueRef RangeTest Method Analysis TimePerformed AtPathologist SignatureHIV AG/AB, 4TH GENNON-REACTIVE NON-WSWKPIDY88/01/2025 1:29 PM CDTQUEST DIAGNOSTICSComment: HIV-1 antigen and HIV-1/HIV-2 antibodies were not detected. There is no laboratory evidence of HIV infection. PLEASE NOTE: This information has been disclosed to you from records whose confidentiality may be protected by state law. ??If your state requires such protection, then the state law prohibits you from making any further disclosure of the information without the specific written consent of the person to whom it pertains, or as otherwise permitted by law. A general authorization for the release of medical or other information is NOT sufficient for this purpose. ?? For additional information please refer to http://education.trueEX/faq/LLX069 (This link is being provided for informational/ educational purposes only.) The performance of this assay has not been clinically validated in patients less than 2 years old. Specimen (Source)Anatomical Location / LateralityCollection Method / Volume Collection TimeReceived TimeBloodBLOOD SPECIMEN / UnknownNon-Lab Venipuncture / Rnhnjxi6810/31/2024 7:53 AM CDT10/31/2024 7:53 AM CDT Narrative Authorizing ProviderResult TypeResult StatusTifjanijoanne Alex Damaris MDSEND OUTS Final ResultPerforming OrganizationAddressCity/State/ZIP CodePhone Number [facility] [address] [place] [address], * SCAN-COLONOSCOPY (03/23/2021 1:00 PM CDT) Narrative Procedure Note Sanjeev Larson MD - 03/23/2021 12:03 PM CDT [facility] [address], [address], [place] [address] Patient Name: Carlyle Alba Gender: Female Exam Date: 03/23/2021 Visit Number: [id number] Age: 50 Years 6 Months Date of : 1970 Attending MD: Sanjeev Larson MD Medical Record#: [id number] Procedure: Colonoscopy Indications: Family history of polyps in patient's multiple relatives. Referring MD: Gabriela Pappas MD Primary MD: Gabriela Pappas MD Medications: Admitting Medications: 0.9% Normal Saline at [facility] Intra Procedure Medications: Patient received monitored anesthesia care. Complications: No immediate complications Procedure: An examination of the heart and lungs was performed and found to be within acceptable limits. The patient was therefore deemed a [...] 29.70 Race: Ethnicity: Not or Preferred Language: Macedonian cc: Gabriela Pappas MD cc: Gabriela Pappas MD [facility] [phone] Authorizing ProviderResult TypeResult StatusStepmaria isabel Larson MDOTHERFinal Result * SUCCESS COACH THIN PREP PAP SCREEN IMAGED (02/02/2021 8:35 AM CDT)ComponentValueRef RangeTest MethodAnalysis TimePerformed AtPathologist SignatureCase Report Gynecologic Cytology Report ? Case: [id number] ? Authorizing Provider: ??Gabriela Pappas MD ??Collected: ? 02/02/2021 0835 ? [facility] ?Received: ?02/02/2021 0842 ? Clinic ? First Screen: ?Odette Mcmillan ? Specimen: ?SUCCESS COACH ThinPrep Vial Screening, Cervical ? 02/11/2021 8:49 AM [facility] INTERPRETATION/RESULTNEGATIVE FOR INTRAEPITHELIAL LESION OR MALIGNANCY (NIL) (none)02/11/2021 8:49 AM [facility] at 0849 CDTSPECIMEN [facility] for [facility] Endocervical component kjjnuid2702/11/2021 8:49 AM [facility]- CENTRAL LABORATORYHPV REQUESTHPV and PAP02/11/2021 8:49 AM [facility]TRAL LABORATORYDate of LMPJuly 28, 8:49 AM CDT [facility]-CENTRAL LABORATORYLast Pap Date/10/1607 8:49 AM [facility]AL LABORATORYLast Pap PelotaURI52/11/2021 8:49 AM [facility]AL LABORATORYAbnormal Pap or Chandler Bx in last 5 viteiFm2102/11/2021 8:49 AM [facility] Menstrual StatusRegular Zejfzqb9402/11/2021 8:49 AM [facility] LABORATORYColp Bx Done QabnqFm7702/11/2021 8:49 AM [facility] LABORATORYAdditional InformationNone given02/11/2021 8:49 AM [facility] LABORATORYComment: Cytology is screened at [facility] - [address], [place] [address] and [facility] - [address] [place] [address] [address] [facility] - [address] [place] [address] [facility] - [address] [place], [place] [address] [place] [address] Automated TwhmvjTuujjotqbu64/11/2021 8:49 AM [facility] LABORATORYComment:Specimen processed successfully by automated card lacer jacquard device, [employer] Imaging System, [employer]ANCILLARY TESTING GYNHPV Ordered, Please see separate jgwprf3202/11/2021 8:49 AM [facility] LABORATORYNoteThe pap test is a screening technique, not a diagnostic procedure. It is used primarily to screen for squamous cancers and precursor lesions. Published studies have shown that it is subject to both false negative and false positive results. The pap test should not be used as the sole means to diagnose or exclude pre-malignant and malignant lesions.02/11/2021 8:49 AM [facility] LABORATORYSpecimen (Source)Anatomical Location / LateralityCollection Method / VolumeCollection TimeReceived TimeOther (Cervical) Non-Blood / Klemroa9402/02/2021 8:35 AM CDT02/02/2021 8:42 AM CDT Narrative Authorizing ProviderResult TypeResult StatusHeather Iris Pappas MD PATHOLOGY/CYTOLOGYFinal ResultPerforming OrganizationAddressCity/State/ZIP Code Phone Number [facility] [address] [place] [address], from Last 3 Months or Most Recently Relevant to Health Maintenance Insurance Care Teams Team MemberRelationshipSpecialtyStart [place] [address] [place] [address] PCP - GeneralFamily Practice12/04/24
--- NOTE | 2025-06-24 13:41 | ED.ABDPAIN ---
HPI - Abdominal Pain General Time Seen by Provider: 13:41 <Arina Talbert MD - Last Filed: 06/27/25 00:33> Date Seen: 06/24/25 <Arina Talbert MD - Last Filed: 06/27/25 00:33> Chief Complaint: Abdominal Pain <Arina Talbert MD - Last Filed: 06/27/25 00:33> Stated Complaint: Possible gallstones <Arina Talbert MD - Last Filed: 06/27/25 00:33> Time Seen by Provider: 06/24/25 13:12 <Arina Talbert MD - Last Filed: 06/27/25 00:33> Source: patient and RN notes reviewed <Arina Talbert MD - Last Filed: 06/27/25 00:33> Mode of arrival: ambulatory <Arina Talbert MD - Last Filed: 06/27/25 00:33> Limitations: no limitations <Arina Talbert MD - Last Filed: 06/27/25 00:33> History of Present Illness HPI narrative: This 54-year-old female is coming in with right upper quadrant pain radiating into her back that awoke her last night. She has ongoing pain and nausea with this. Had an emesis this morning. She had a more oily stool this morning. No urinary symptoms. No prior abdominal surgeries. She has no chest pain with this, no respiratory symptoms. She last ate last night. She believes that she had a fever overnight. She does not know exactly how high her temperature was last night, woke up sweating in bed. <Arina Talbert MD - Last Filed: 06/27/25 00:33> Related Data Home Medications: Previous Rx's ?Medication ?Instructions ?Recorded hydrocodone 5 mg-acetaminophen 325 1 tab PO Q4-6H PRN pain #15 tabs 09/20/24 mg tablet ketorolac 10 mg tablet 10 mg PO TID 5 days #15 tabs 09/20/24 ondansetron HCl 4 mg tablet 4 mg PO Q6H #15 tabs 09/20/24 <Arina Talbert MD - Last Filed: 06/27/25 00:33> Allergies/Adverse Reactions: Allergies Allergy/AdvReac Type Severity Reaction Status Date / Time No Known Drug Allergies Allergy Verified 06/24/25 15:30 <Arina Talbert MD - Last Filed: 06/27/25 00:33> Review of Systems Status of ROS Reports: 6 or more systems reviewed and unremarkable except as noted in History and below <Arina Talbert MD - Last Filed: 06/27/25 00:33> [facility] Social History: Social History Smoking Status: Never smoker Do you use any of these nicotine containing products: None How often do you have a drink containing alcohol: never How often do you have six or more drinks on one occasion: Never AUDIT-C Alcohol total score: 0 Non-prescribed substance use: denies use service: No <Arina Talbert MD - Last Filed: 06/27/25 00:33> Exam Const: Vital Signs, click to edit/add: Vital Signs - 24 hr 06/24/25 13:22 06/24/25 15:17 06/24/25 15:23 Temperature 99.0 F Pulse Rate 103 H Pulse Rate [Pulse Oximeter] 120 H 74 Respiratory Rate 20 16 Blood Pressure Blood Pressure [Ri ght Upper Arm] 102/71 106/59 L Pulse Oximetry 96 95 97 Oxygen Delivery Me thod Room Air Room Air 06/24/25 15:33 06/24/25 15:45 06/24/25 16:00 Temperature Pulse Rate 103 H 97 99 Pulse Rate [Pulse Oximeter] Respiratory Rate 18 Blood Pressure Blood Pressure [Ri ght Upper Arm] Pulse Oximetry 98 96 96 Oxygen Delivery Me thod 06/24/25 16:15 06/24/25 16:30 06/24/25 16:45 Temperature Pulse Rate 102 H 106 H 97 Pulse Rate [Pulse Oximeter] Respiratory Rate 18 16 Blood Pressure Blood Pressure [Ri ght Upper Arm] Pulse Oximetry 96 97 100 Oxygen Delivery Me thod 06/24/25 17:35 06/24/25 17:45 06/24/25 18:00 Temperature Pulse Rate 97 90 91 Pulse Rate [Pulse Oximeter] Respiratory Rate 16 Blood Pressure Blood Pressure [Ri ght Upper Arm] Pulse Oximetry 96 95 93 Oxygen Delivery Me thod 06/24/25 18:15 06/24/25 18:30 06/24/25 18:45 Temperature Pulse Rate 95 95 96 Pulse Rate [Pulse Oximeter] Respiratory Rate Blood Pressure Blood Pressure [Ri ght Upper Arm] Pulse Oximetry 92 92 91 Oxygen Delivery Me thod 06/24/25 19:00 06/24/25 19:13 06/24/25 19:15 Temperature Pulse Rate 95 100 92 Pulse Rate [Pulse Oximeter] Respiratory Rate 18 Blood Pressure 106/60 Blood Pressure [Ri ght Upper Arm] Pulse Oximetry 93 93 92 Oxygen Delivery Me thod 06/25/25 00:10 Temperature 98.6 F Pulse Rate Pulse Rate [Pulse Oximeter] Respiratory Rate Blood Pressure Blood Pressure [Ri ght Upper Arm] Pulse Oximetry Oxygen Delivery Me thod This 54-year-old female seen in exam room 5, she is alert, interactive, no apparent distress but looks uncomfortable. She is lying in the bed. Sclera clear, no jaundice, speech normal. Face atraumatic. Lungs are clear, good air entry, no wheezing crackles, no tachypnea, no accessory muscle use. CV fast but regular, no murmur, normal S1-S2. Abdomen with moderate right upper quadrant pain, no rebound or guarding, no organomegaly, no masses, normal bowel sounds noted. Patient was ambulatory into the ED of her own accord. <Arina Talbert MD - Last Filed: 06/27/25 00:33> Vital Signs, click to edit/add: Vital Signs - 24 hr 06/24/25 13:22 06/24/25 15:17 06/24/25 15:23 Temperature 99.0 F Pulse Rate 103 H Pulse Rate [Pulse Oximeter] 120 H 74 Respiratory Rate 20 16 Blood Pressure Blood Pressure [Ri ght Upper Arm] 102/71 106/59 L Pulse Oximetry 96 95 97 Oxygen Delivery Me thod Room Air Room Air 06/24/25 15:33 06/24/25 15:45 06/24/25 16:00 Temperature Pulse Rate 103 H 97 99 Pulse Rate [Pulse Oximeter] Respiratory Rate 18 Blood Pressure Blood Pressure [Ri ght Upper Arm] Pulse Oximetry 98 96 96 Oxygen Delivery Me thod 06/24/25 16:15 06/24/25 16:30 06/24/25 16:45 Temperature Pulse Rate 102 H 106 H 97 Pulse Rate [Pulse Oximeter] Respiratory Rate 18 16 Blood Pressure Blood Pressure [Ri ght Upper Arm] Pulse Oximetry 96 97 100 Oxygen Delivery Me thod 06/24/25 17:35 06/24/25 17:45 06/24/25 18:00 Temperature Pulse Rate 97 90 91 Pulse Rate [Pulse Oximeter] Respiratory Rate 16 Blood Pressure Blood Pressure [Ri ght Upper Arm] Pulse Oximetry 96 95 93 Oxygen Delivery Me thod 06/24/25 18:15 06/24/25 18:30 06/24/25 18:45 Temperature Pulse Rate 95 95 96 Pulse Rate [Pulse Oximeter] Respiratory Rate Blood Pressure Blood Pressure [Ri ght Upper Arm] Pulse Oximetry 92 92 91 Oxygen Delivery Me thod 06/24/25 19:00 06/24/25 19:13 06/24/25 19:15 Temperature Pulse Rate 95 100 92 Pulse Rate [Pulse Oximeter] Respiratory Rate 18 Blood Pressure 106/60 Blood Pressure [Ri ght Upper Arm] Pulse Oximetry 93 93 92 Oxygen Delivery Me thod 06/25/25 00:10 Temperature 98.6 F Pulse Rate Pulse Rate [Pulse Oximeter] Respiratory Rate Blood Pressure Blood Pressure [Ri ght Upper Arm] Pulse Oximetry Oxygen Delivery Me thod <Madison Garcia MD - Last Filed: 06/25/25 02:10> Documenting provider has reviewed patient's vital signs: yes <Arina Talbert MD - Last Filed: 06/27/25 00:33> Course Course ED Course: Reviewed with her that I do think that this is biliary. Do wonder if she could have cholecystitis based on her presentation. Need to consider pancreatitis as well and we have discussed this as a complication of cholelithiasis. We will start with a right upper quadrant ultrasound. We will treat her symptoms with Zofran and morphine, start some IV fluids. Her blood pressure is elevated, low-grade temperature here. Need to watch her blood pressure and her vitals. Will get full complement of labs. She does understand that we may need to do CT imaging as well if there is concern for pancreatitis. <Arina Talbert MD - Last Filed: 06/27/25 00:33> Reevaluation(s) Time of Reevaluation #1: 14:22 <Arina Talbert MD - Last Filed: 06/27/25 00:33> Reevaluation #1: The preliminary ultrasound from the technologist is that there is too maybe small stones within the body of the gallbladder, wall is not thickened. Her common bile duct is 7 mm. Will have nursing staff collect triple viral swab, will obtain EKG and I did do a lab add on for troponin to consider other potential etiologies. Do wonder if she perhaps could have some atypical presentation of influenza. Still need to consider other intra-abdominal pathology but awaiting labs. Her white blood count is completely normal at this time. <Arina Talbert MD - Last Filed: 06/27/25 00:33> Time of Reevaluation #2: 16:31 <Arina Talbert MD - Last Filed: 06/27/25 00:33> Reevaluation #2: Patient is updated on her CT report, updated she will be getting MRI of her abdomen and the plans if there is no concerns with the pancreas on this. She is having a mild headache, has some nausea. Will give her more Zofran. We talked about simply doing something like IV Tylenol, if that does not help, she will let me know. <Arina Talbert MD - Last Filed: 06/27/25 00:33> Time of Reevaluation #3: 18:47 <Arina Talbert MD - Last Filed: 06/27/25 00:33> Reevaluation #3: Have reviewed the MRI report with patient and the concerns with this. I am going to initiate Zosyn. <Arina Talbert MD - Last Filed: 06/27/25 00:33> Additional Reevaluation(s): Dr. Garcia: Update: I inherited care from outgoing evening provider. Vital signs have normalized. She remains afebrile and without hypoxia. Patient did not require any further interventions during my time of care and transferred to [facility] by ground ambulance team at 2:09 a.m.. <Madison Garcia MD - Last Filed: 06/25/25 02:10> Consultations Consultation #1: Have spoken to Dr. Gilmore our on-call general surgeon. She agrees with getting the MR abdomen. If this is normal meaning no pancreatic head lesion, she agrees that patient probably needs her gallbladder out. I will call her back. I am going to update patient on getting the MRI of her abdomen. 6:31 p.m.: Have contacted Dr. Gilmore with the MRCP results. There is no choledocholithiasis seen. Patient will likely need an EUS and if EUS is abnormal, ERCP with stent placement. If the EUS is normal, likely proceed with cholecystectomy. I will try to talk to GI at [facility]. I do think this patient is having some symptoms that are concerning for cholecystitis, noted a fever. She does have dilated ducts. We will see if we can potentially arrange for them to take a transfer to do these procedures and then we could take the patient back here for her surgery, this is been done in the past. Facilities are extremely busy and do not have capacity right now. I will see what I can arrange. <Arina Talbert MD - Last Filed: 06/27/25 00:33> Time: 16:26 <Arina Talbert MD - Last Filed: 06/27/25 00:33> Consultation #2: Have spoken with GI physician Dr. Chen. He agrees that this patient needs an EUS. He understands my concern for infection. Patient is going to need to transfer. They are going to page out the hospitalist. I am not sure what the time frame for transfer will be as there has been delays. Will talk to the hospitalist when they call back. 7:15 p.m.: Have spoken with the hospitalist at [facility], Dr. Clemens. Have reviewed the case, she accepts the patient. It may be up to an 8 hour transfer delay. I have written for ongoing antibiotics, maintenance IV fluid, p.r.n. pain medicine with morphine and Zofran. She will be updated about the plan to transfer. <Arina Talbert MD - Last Filed: 06/27/25 00:33> Time: 19:06 <Arina Talbert MD - Last Filed: 06/27/25 00:33> Vital Signs Vital signs: Initial Vital Signs Temperature 99.0 F 06/24/25 13:22 Temperature Source Temporal Artery Scan 06/24/25 13:22 Pulse Rate 120 H 06/24/25 13:22 Respiratory Rate 20 06/24/25 13:22 Blood Pressure 102/71 06/24/25 13:22 Blood Pressure Mean 81 06/24/25 13:22 Pulse Oximetry 96 06/24/25 13:22 Oxygen Delivery Method Room Air 06/24/25 13:22 Vital Signs Temperature 99.0 F 06/24/25 13:22 Pulse Rate 120 H 06/24/25 13:22 Respiratory Rate 20 06/24/25 13:22 Blood Pressure 102/71 06/24/25 13:22 Pulse Oximetry 96 06/24/25 13:22 Oxygen Delivery Method Room Air 06/24/25 13:22 Temperature 98.6 F 06/25/25 00:10 Pulse Rate 92 06/24/25 19:15 Respiratory Rate 18 06/24/25 19:13 Blood Pressure 106/60 06/24/25 19:13 Pulse Oximetry 92 06/24/25 19:15 Oxygen Delivery Method Room Air 06/24/25 15:17 <Arina Talbert MD - Last Filed: 06/27/25 00:33> Initial Vital Signs Temperature 99.0 F 06/24/25 13:22 Temperature Source Temporal Artery Scan 06/24/25 13:22 Pulse Rate 120 H 06/24/25 13:22 Respiratory Rate 20 06/24/25 13:22 Blood Pressure 102/71 06/24/25 13:22 Blood Pressure Mean 81 06/24/25 13:22 Pulse Oximetry 96 06/24/25 13:22 Oxygen Delivery Method Room Air 06/24/25 13:22 Vital Signs Temperature 99.0 F 06/24/25 13:22 Pulse Rate 120 H 06/24/25 13:22 Respiratory Rate 20 06/24/25 13:22 Blood Pressure 102/71 06/24/25 13:22 Pulse Oximetry 96 06/24/25 13:22 Oxygen Delivery Method Room Air 06/24/25 13:22 Temperature 98.6 F 06/25/25 00:10 Pulse Rate 92 06/24/25 19:15 Respiratory Rate 18 06/24/25 19:13 Blood Pressure 106/60 06/24/25 19:13 Pulse Oximetry 92 06/24/25 19:15 Oxygen Delivery Method Room Air 06/24/25 15:17 <Madison Garcia MD - Last Filed: 06/25/25 02:10> Medications Administered Medications: Discontinued Medications Generic Name Dose Route Start Last Admin Trade Name Freq PRN Reason Stop Dose Admin Acetaminophen 1,000 mg 06/25/25 00:06 06/25/25 00:10 Acetaminophen 500 Mg Tablet PO 06/25/25 00:07 1,000 mg ONCE ONE Administration Sodium Chloride 1,000 mls @ 500 mls/hr 06/24/25 13:46 06/24/25 15:12 0.9 % Sodium Chloride 1000 Ml IV 06/24/25 15:45 Infused .Q2H CHEYANNE Infusion Acetaminophen 1,000 mg in 100 mls @ 400 mls/hr 06/24/25 16:36 06/24/25 18:05 Acetaminophen Inj IVPB 06/24/25 16:50 Infused ONCE ONE Infusion Piperacillin Sod/Tazobactam 100 mls @ 200 mls/hr 06/24/25 19:00 06/24/25 19:39 Sod 3.375 gm/ Sodium Chloride IVPB Infused Q6H CHEYANNE Infusion Lactated Ringer's 1,000 mls @ 75 mls/hr 06/24/25 19:10 06/24/25 20:58 Lactated Ringers 1000 Ml IV 75 mls/hr .[id number] CHEYANNE Administration Morphine Sulfate 4 mg 06/24/25 13:45 06/24/25 14:28 Morphine 4 Mg/Ml Inj IVP 06/24/25 13:46 4 mg ONCE ONE Administration Ondansetron HCl 4 mg 06/24/25 13:45 06/24/25 14:28 Ondansetron 2 Mg/Ml Inj IVP 06/24/25 13:46 4 mg ONCE ONE Administration Ondansetron HCl 4 mg 06/24/25 16:36 06/24/25 16:46 Ondansetron 2 Mg/Ml Inj IVP 06/24/25 16:37 4 mg ONCE ONE Administration <Arina Talbert MD - Last Filed: 06/27/25 00:33> Discontinued Medications Generic Name Dose Route Start Last Admin Trade Name Freq PRN Reason Stop Dose Admin Acetaminophen 1,000 mg 06/25/25 00:06 06/25/25 00:10 Acetaminophen 500 Mg Tablet PO 06/25/25 00:07 1,000 mg ONCE ONE Administration Sodium Chloride 1,000 mls @ 500 mls/hr 06/24/25 13:46 06/24/25 15:12 0.9 % Sodium Chloride 1000 Ml IV 06/24/25 15:45 Infused .Q2H CHEYANNE Infusion Acetaminophen 1,000 mg in 100 mls @ 400 mls/hr 06/24/25 16:36 06/24/25 18:05 Acetaminophen Inj IVPB 06/24/25 16:50 Infused ONCE ONE Infusion Piperacillin Sod/Tazobactam 100 mls @ 200 mls/hr 06/24/25 19:00 06/24/25 19:39 Sod 3.375 gm/ Sodium Chloride IVPB Infused Q6H CHEYANNE Infusion Lactated Ringer's 1,000 mls @ 75 mls/hr 06/24/25 19:10 06/24/25 20:58 Lactated Ringers 1000 Ml IV 75 mls/hr .[id number] CHEYANNE Administration Morphine Sulfate 4 mg 06/24/25 13:45 06/24/25 14:28 Morphine 4 Mg/Ml Inj IVP 06/24/25 13:46 4 mg ONCE ONE Administration Ondansetron HCl 4 mg 06/24/25 13:45 06/24/25 14:28 Ondansetron 2 Mg/Ml Inj IVP 06/24/25 13:46 4 mg ONCE ONE Administration Ondansetron HCl 4 mg 06/24/25 16:36 06/24/25 16:46 Ondansetron 2 Mg/Ml Inj IVP 06/24/25 16:37 4 mg ONCE ONE Administration <Madison Garcia MD - Last Filed: 06/25/25 02:10> MDM - Abdominal Pain Lab Data Attestation: I reviewed the patient's lab results. <Arina Talbert MD - Last Filed: 06/27/25 00:33> Labs: Lab Results 06/24/25 06/24/25 06/24/25 Range/Units 13:55 14:20 14:30 WBC 6.67 (4.50-11.00) K/uL RBC 4.88 (4.00-5.20) m/uL Hgb 14.1 (12.0-16.0) gm/dL Hct 42.0 (33.0-51.0) % MCV 86 (80-100) fL MCH 29 (26-34) pg MCHC 34 (32-36) gm/dL RDW Coeff of Kathy 12.8 (11.5-15.5) % Plt Count 217 (140-440) K/uL Neut % (Auto) 83.1 H (42.0-72.0) % Lymph % (Auto) 9.0 L (20-44) % [place] % (Auto) 7.8 (0.0-11.0) % Eos % (Auto) 0.0 (0.0-7.0) % Baso % (Auto) 0.1 (0.0-3.0) % Neut # (Auto) 5.50 (1.7-7.0) K/uL Lymph # (Auto) 0.60 L (0.90-2.90) K/uL [place] # (Auto) 0.50 (0.00-0.90) K/UL Eos # (Auto) 0.00 (0.00-0.50) K/uL Baso # (Auto) 0.01 (0.00-0.30) K/uL Abs Immat Gran (auto) 0.00 (0.00-0.30) K/uL Imm/Tot Granulo (auto) 0.0 % Sodium 132 L (135-149) mmol/L Potassium 3.9 (3.6-5.1) mmol/L Chloride 101 (96-114) mmol/L Carbon Dioxide 24 (20-32) mmol/L Anion Gap 7 (7-15) mEq/L BUN 15 (7-30) mg/dL Creatinine 0.9 (0.5-1.5) mg/dL Estimated Creat Clear 59.11 Estimated GFR 76 ml/min Glucose 103 (60-115) mg/dL Lactate 0.7 (0.5-1.9) mmol/L Calcium 8.7 (8.4-10.6) mg/dL Total Bilirubin 0.7 (0.1-1.5) mg/dL Direct Bilirubin 0.2 (0.0-0.5) mg/dL AST 31 (12-35) U/L ALT 28 (4-35) U/L Alkaline Phosphatase 74 (40-150) U/L Troponin I < 0.01 (0.01-0.04) ng/mL C-Reactive Protein 1.1 H (0.5-1.0) mg/dL Total Protein 7.0 (6.0-8.3) g/dL Albumin 4.2 (3.3-5.0) g/dL Lipase 43 (23-300) U/L Urine Color (Yellow) Urine Appearance (Clear) Urine pH (5.0-8.5) Ur Specific [place] (1.000-1.030) Urine Protein (Negative) Urine Glucose (UA) (Negative) Urine Ketones (Negative) Urine Blood (Negative) Urine Nitrite (Negative) Urine Bilirubin (Negative) Urine Urobilinogen (0.2-1.0) Ur Leukocyte Esterase (Negative) Urine RBC (0-2) Urine WBC (0-5) Ur Squamous Epith Cells (None-Few) Urine Bacteria (None) SARS-CoV-2 (PCR) Negative SARS-CoV-2 (Negative) Influenza Type A (PCR) Negative PCR FLU A (Negative) Influenza Type B (PCR) Negative PCR FLU B (Negative) RSV (PCR) Negative PCR RSV (Negative) Lab Acknowledgement Test Added 06/24/25 Range/Units 15:30 WBC (4.50-11.00) K/uL RBC (4.00-5.20) m/uL Hgb (12.0-16.0) gm/dL Hct (33.0-51.0) % MCV (80-100) fL MCH (26-34) pg MCHC (32-36) gm/dL RDW Coeff of Kathy (11.5-15.5) % Plt Count (140-440) K/uL Neut % (Auto) (42.0-72.0) % Lymph % (Auto) (20-44) % [place] % (Auto) (0.0-11.0) % Eos % (Auto) (0.0-7.0) % Baso % (Auto) (0.0-3.0) % Neut # (Auto) (1.7-7.0) K/uL Lymph # (Auto) (0.90-2.90) K/uL [place] # (Auto) (0.00-0.90) K/UL Eos # (Auto) (0.00-0.50) K/uL Baso # (Auto) (0.00-0.30) K/uL Abs Immat Gran (auto) (0.00-0.30) K/uL Imm/Tot Granulo (auto) % Sodium (135-149) mmol/L Potassium (3.6-5.1) mmol/L Chloride (96-114) mmol/L Carbon Dioxide (20-32) mmol/L Anion Gap (7-15) mEq/L BUN (7-30) mg/dL Creatinine (0.5-1.5) mg/dL Estimated Creat Clear Estimated GFR ml/min Glucose (60-115) mg/dL Lactate (0.5-1.9) mmol/L Calcium (8.4-10.6) mg/dL Total Bilirubin (0.1-1.5) mg/dL Direct Bilirubin (0.0-0.5) mg/dL AST (12-35) U/L ALT (4-35) U/L Alkaline Phosphatase (40-150) U/L Troponin I (0.01-0.04) ng/mL C-Reactive Protein (0.5-1.0) mg/dL Total Protein (6.0-8.3) g/dL Albumin (3.3-5.0) g/dL Lipase (23-300) U/L Urine Color Yellow (Yellow) Urine Appearance Clear (Clear) Urine pH 6.5 (5.0-8.5) Ur Specific [place] 1.010 (1.000-1.030) Urine Protein Negative (Negative) Urine Glucose (UA) Negative (Negative) Urine Ketones 1+ A (Negative) Urine Blood Negative (Negative) Urine Nitrite Negative (Negative) Urine Bilirubin Negative (Negative) Urine Urobilinogen 0.2 (0.2-1.0) Ur Leukocyte Esterase Negative (Negative) Urine RBC 0-2 (0-2) Urine WBC 0-2 (0-5) Ur Squamous Epith Cells None (None-Few) Urine Bacteria None (None) SARS-CoV-2 (PCR) (Negative) Influenza Type A (PCR) (Negative) Influenza Type B (PCR) (Negative) RSV (PCR) (Negative) Lab Acknowledgement <Arina Talbert MD - Last Filed: 06/27/25 00:33> Lab Results 06/24/25 06/24/25 06/24/25 Range/Units 13:55 14:20 14:30 WBC 6.67 (4.50-11.00) K/uL RBC 4.88 (4.00-5.20) m/uL Hgb 14.1 (12.0-16.0) gm/dL Hct 42.0 (33.0-51.0) % MCV 86 (80-100) fL MCH 29 (26-34) pg MCHC 34 (32-36) gm/dL RDW Coeff of Kathy 12.8 (11.5-15.5) % Plt Count 217 (140-440) K/uL Neut % (Auto) 83.1 H (42.0-72.0) % Lymph % (Auto) 9.0 L (20-44) % [place] % (Auto) 7.8 (0.0-11.0) % Eos % (Auto) 0.0 (0.0-7.0) % Baso % (Auto) 0.1 (0.0-3.0) % Neut # (Auto) 5.50 (1.7-7.0) K/uL Lymph # (Auto) 0.60 L (0.90-2.90) K/uL [place] # (Auto) 0.50 (0.00-0.90) K/UL Eos # (Auto) 0.00 (0.00-0.50) K/uL Baso # (Auto) 0.01 (0.00-0.30) K/uL Abs Immat Gran (auto) 0.00 (0.00-0.30) K/uL Imm/Tot Granulo (auto) 0.0 % Sodium 132 L (135-149) mmol/L Potassium 3.9 (3.6-5.1) mmol/L Chloride 101 (96-114) mmol/L Carbon Dioxide 24 (20-32) mmol/L Anion Gap 7 (7-15) mEq/L BUN 15 (7-30) mg/dL Creatinine 0.9 (0.5-1.5) mg/dL Estimated Creat Clear 59.11 Estimated GFR 76 ml/min Glucose 103 (60-115) mg/dL Lactate 0.7 (0.5-1.9) mmol/L Calcium 8.7 (8.4-10.6) mg/dL Total Bilirubin 0.7 (0.1-1.5) mg/dL Direct Bilirubin 0.2 (0.0-0.5) mg/dL AST 31 (12-35) U/L ALT 28 (4-35) U/L Alkaline Phosphatase 74 (40-150) U/L Troponin I < 0.01 (0.01-0.04) ng/mL C-Reactive Protein 1.1 H (0.5-1.0) mg/dL Total Protein 7.0 (6.0-8.3) g/dL Albumin 4.2 (3.3-5.0) g/dL Lipase 43 (23-300) U/L Urine Color (Yellow) Urine Appearance (Clear) Urine pH (5.0-8.5) Ur Specific [place] (1.000-1.030) Urine Protein (Negative) Urine Glucose (UA) (Negative) Urine Ketones (Negative) Urine Blood (Negative) Urine Nitrite (Negative) Urine Bilirubin (Negative) Urine Urobilinogen (0.2-1.0) Ur Leukocyte Esterase (Negative) Urine RBC (0-2) Urine WBC (0-5) Ur Squamous Epith Cells (None-Few) Urine Bacteria (None) SARS-CoV-2 (PCR) Negative SARS-CoV-2 (Negative) Influenza Type A (PCR) Negative PCR FLU A (Negative) Influenza Type B (PCR) Negative PCR FLU B (Negative) RSV (PCR) Negative PCR RSV (Negative) Lab Acknowledgement Test Added 06/24/25 Range/Units 15:30 WBC (4.50-11.00) K/uL RBC (4.00-5.20) m/uL Hgb (12.0-16.0) gm/dL Hct (33.0-51.0) % MCV (80-100) fL MCH (26-34) pg MCHC (32-36) gm/dL RDW Coeff of Kathy (11.5-15.5) % Plt Count (140-440) K/uL Neut % (Auto) (42.0-72.0) % Lymph % (Auto) (20-44) % [place] % (Auto) (0.0-11.0) % Eos % (Auto) (0.0-7.0) % Baso % (Auto) (0.0-3.0) % Neut # (Auto) (1.7-7.0) K/uL Lymph # (Auto) (0.90-2.90) K/uL [place] # (Auto) (0.00-0.90) K/UL Eos # (Auto) (0.00-0.50) K/uL Baso # (Auto) (0.00-0.30) K/uL Abs Immat Gran (auto) (0.00-0.30) K/uL Imm/Tot Granulo (auto) % Sodium (135-149) mmol/L Potassium (3.6-5.1) mmol/L Chloride (96-114) mmol/L Carbon Dioxide (20-32) mmol/L Anion Gap (7-15) mEq/L BUN (7-30) mg/dL Creatinine (0.5-1.5) mg/dL Estimated Creat Clear Estimated GFR ml/min Glucose (60-115) mg/dL Lactate (0.5-1.9) mmol/L Calcium (8.4-10.6) mg/dL Total Bilirubin (0.1-1.5) mg/dL Direct Bilirubin (0.0-0.5) mg/dL AST (12-35) U/L ALT (4-35) U/L Alkaline Phosphatase (40-150) U/L Troponin I (0.01-0.04) ng/mL C-Reactive Protein (0.5-1.0) mg/dL Total Protein (6.0-8.3) g/dL Albumin (3.3-5.0) g/dL Lipase (23-300) U/L Urine Color Yellow (Yellow) Urine Appearance Clear (Clear) Urine pH 6.5 (5.0-8.5) Ur Specific [place] 1.010 (1.000-1.030) Urine Protein Negative (Negative) Urine Glucose (UA) Negative (Negative) Urine Ketones 1+ A (Negative) Urine Blood Negative (Negative) Urine Nitrite Negative (Negative) Urine Bilirubin Negative (Negative) Urine Urobilinogen 0.2 (0.2-1.0) Ur Leukocyte Esterase Negative (Negative) Urine RBC 0-2 (0-2) Urine WBC 0-2 (0-5) Ur Squamous Epith Cells None (None-Few) Urine Bacteria None (None) SARS-CoV-2 (PCR) (Negative) Influenza Type A (PCR) (Negative) Influenza Type B (PCR) (Negative) RSV (PCR) (Negative) Lab Acknowledgement <Madison Garcia MD - Last Filed: 06/25/25 02:10> Imaging Data US - abdomen: Attestation: I have reviewed the pertinent imaging results. <Arina Talbert MD - Last Filed: 06/27/25 00:33> Radiologist's impression: Patient: DENISSE GOODWIN Facility:?[facility] Patient ID:?[id number] Site Patient ID:?[id number] Site :?[id number] Study:?US-Gallbladder -06/24/2025 2:26:14 PM Ordering Physician:Leana Santa Final Report: INDICATION: Right upper quadrant abdomen pain. TECHNIQUE: Ultrasound abdomen limited. Sonographic images of the right upper quadrant were obtained using watts-scale and color Doppler images. COMPARISON: CT abdomen pelvis 09/20/2024 FINDINGS: Gallbladder: There are two 0.4 centimeter gallbladder polyps, which do not meet criteria for follow-up by SRU criteria. Common bile duct: 7 mm. No choledocholithiasis, though the distal common bile duct is not visualized. IMPRESSION: Common bile duct is at the upper limits of normal without evidence of choledocholithiasis, though the distal common bile duct is not visualized. This is similar to the prior CT, but if LFTs are abnormal, consider further evaluation with MRCP. Dictated by Tessa Kovacs MD @ 06/24/2025 2:45:22 PM (Electronic Signature) <Arina Talbert MD - Last Filed: 06/27/25 00:33> CT scan - abdomen: Attestation: I have reviewed the pertinent imaging results. <Arina Talbert MD - Last Filed: 06/27/25 00:33> Radiologist's impression: Patient: DENISSE GOODWIN Facility:?[facility] Patient ID:?[id number] Site Patient ID:?[id number]. Site :?[id number] Study:?CT-Abdomen/Pelvis 106CC ISOVUE 370-06/24/2025 3:30:27 PM Ordering Physician:Leana Santa Final Report: INDICATION: Right upper abdominal pain. TECHNIQUE: CT abdomen and pelvis acquired with 106 cc Omnipaque 350 IV contrast. COMPARISON: Abdominal ultrasound June 24, [address] abdomen pelvis without contrast September 20, 2024 FINDINGS: Lower chest: Unremarkable. Liver: Diffuse hypoattenuation which could be affected hepatic steatosis. Gallbladder and bile ducts: Punctate hyperdensity in the gallbladder likely reflective of gallstone. Dilatation of the common bile duct measuring up to 8 millimeters with abrupt tapering at the pancreas. Pancreas: Unremarkable Spleen: Unremarkable Adrenal glands: Unremarkable Kidneys: Subcentimeter hypodensities too small to characterize. GI tract: Unremarkable. Normal appendix. Vasculature: Abdominal aorta is normal in caliber. Lymph nodes: Mildly prominent left inguinal lymph node. Peritoneum/Abdominal Wall: Unremarkable Pelvis: Enhancing focus in the uterus, which could be reflective of a fibroid. Bones: No acute findings. IMPRESSION: Dilatation of the common bile duct measuring up to 8 millimeters with abrupt tapering at the level of the pancreas. Recommend further evaluation with dedicated MRCP to rule out choledocholithiasis or underlying pancreatic head lesion. Cholelithiasis. Enhancing focus in the uterus which could be reflective of a fibroid. Recommend dedicated pelvic MRI for further evaluation. Please note that all CT scans at this facility use dose modulation, iterative reconstruction, and/or weight-based dosing when appropriate to reduce radiation dose to as low as reasonably achievable. Dictated by Quinn Hurley MD @ 06/24/2025 4:10:36 PM (Electronic Signature) <Arina Talbert MD - Last Filed: 06/27/25 00:33> MRI - abdomen: Attestation: I have reviewed the pertinent imaging results. <Arina Talbert MD - Last Filed: 06/27/25 00:33> Radiologist's impression: Patient: DENISSE GOODWIN Facility:?[facility] Patient ID:?[id number] Site Patient ID:?[id number]. Site :?1970 Study:?MRI-Abdomen W/O MRCP-06/24/2025 5:41:55 PM Ordering Physician:Leana Santa Final Report: INDICATION: CBD dilation COMPARISON: None. TECHNIQUE: Mulitplanar, mutliparametric MR imaging of the abdomen without intravenous contrast. MRCP sequences were obtained, including 3D MRCP. FINDINGS: Lower chest: Unremarkable Liver: Hepatic steatosis. Gallbladder: Distended gallbladder. No evidence cholelithiasis. Gallbladder polyp seen on the same-day ultrasound are not well visualized on this exam. Bile ducts: Mildly dilated intra and extrahepatic biliary ducts, with the common bile duct measuring up to 0.8 centimeters. No evidence of choledocholithiasis. Spleen: Unremarkable. Pancreas: Unremarkable. No evidence of pancreatic mass or pancreatic ductal dilation on this noncontrast exam. Adrenal glands: Unremarkable. Kidneys and Ureters: Unremarkable. Lymph Nodes: No enlarged lymph nodes. Vasculature: Unremarkable. Bowel: No obstruction. Peritoneum: Unremarkable. Abdominal wall: Unremarkable Bones: Unremarkable. IMPRESSION: Mildly dilated intra and extrahepatic biliary ducts. No evidence of choledocholithiasis. If LFTs are abnormal, this can be seen with sphincter of Oddi dysfunction. Hepatic steatosis. Dictated by Tessa Kovacs MD @ 06/24/2025 6:24:27 PM ----- ADDENDUM ----- Comparison: Same-day CT and right upper quadrant ultrasound, and CT abdomen pelvis 09/20/2024 Dictated by Tessa Kovacs MD @ Jun 24 2025 6:25PM (Electronic Signature) <Arina Talbert MD - Last Filed: 06/27/25 00:33> ECG Data Attestation: I personally reviewed and interpreted this ECG as follows: (Sinus rhythm, 93 beats per minute. Normal EKG, no evidence of ischemia or infarct.) <Arina Talbert MD - Last Filed: 06/27/25 00:33> ECG interpretation date: 06/24/25 <Arina Talbert MD - Last Filed: 06/27/25 00:33> ECG interpretation time: 14:40 <Arina Talbert MD - Last Filed: 06/27/25 00:33> Prior ECG tracings: not available for review <Arina Talbert MD - Last Filed: 06/27/25 00:33> Discharge Plan Discharge Clinical Impression: Abdominal pain, acute, right upper quadrant, Dilation of common bile duct, Dilated intrahepatic bile duct <Arina Talbert MD - Last Filed: 06/27/25 00:33> [facility] <Arina Talbert MD - Last Filed: 06/27/25 00:33> Discharge Location: [facility] <Arina Talbert MD - Last Filed: 06/27/25 00:33> Prescriptions: No Action hydrocodone-acetaminophen 5-325 mg tablet 1 tab PO Q4-6H PRN (Reason: pain) Qty: 15 0RF ondansetron HCl 4 mg tablet 4 mg PO Q6H Qty: 15 0RF ketorolac 10 mg tablet 10 mg PO TID 5 Days Qty: 15 0RF <Arina Talbert MD - Last Filed: 06/27/25 00:33> Stand Alone Forms: MyHealth Info Instructions <Arina Talbert MD - Last Filed: 06/27/25 00:33>
--- NOTE | 2025-06-24 13:45 | CRLHL7_ITS ---
For Patients: As a result of the Century Cures Act, medical imaging exams and procedure reports are released immediately into your electronic medical record. You may view this report before your referring provider. If you have questions, please contact your health care provider. INDICATION: Right upper quadrant abdomen pain. TECHNIQUE: Ultrasound abdomen limited. Sonographic images of the right upper quadrant were obtained using watts-scale and color Doppler images. COMPARISON: CT abdomen pelvis 09/20/2024 FINDINGS: Gallbladder: There are two 0.4 centimeter gallbladder polyps, which do not meet criteria for follow-up by SRU criteria. Common bile duct: 7 mm. No choledocholithiasis, though the distal common bile duct is not visualized. IMPRESSION: Common bile duct is at the upper limits of normal without evidence of choledocholithiasis, though the distal common bile duct is not visualized. This is similar to the prior CT, but if LFTs are abnormal, consider further evaluation with MRCP. Dictated by Tessa Kovacs MD @ 06/24/2025 2:45:22 PM (Electronically Signed)
[2025-06-24 14:02] LABS: Lactate* 0.7 mmol/L (0.5-1.9)
[2025-06-24 14:10] LABS: Hematocrit* 42.0 % (33.0-51.0); Hemoglobin* 14.1 gm/dL (12.0-16.0); Immature Granulocytes Abs Auto 0.00 K/uL (0.00-0.30); Immature Granulocytes Pct Auto 0.0 %; Lymphocytes Absolute Auto 0.60 K/uL (0.90-2.90); Mean Corpuscular HGB Conc 34 gm/dL (32-36); Mean Corpuscular Hemoglobin 29 pg (26-34); Mean Corpuscular Volume 86 fL (80-100); RDW Coefficient of Variation % 12.8 % (11.5-15.5); Red Blood Count* 4.88 m/uL (4.00-5.20); White Blood Count* 6.67 K/uL (4.50-11.00)
[2025-06-24 14:14] LABS: Slide Review Reflex No
[2025-06-24 14:20] LABS: Albumin* 4.2 g/dL (3.3-5.0); Chloride* 101 mmol/L (96-114); Potassium* 3.9 mmol/L (3.6-5.1); Sodium* 132 mmol/L (135-149)
[2025-06-24 14:22] LABS: Blood Urea Nitrogen* 15 mg/dL (7-30); Creatinine* 0.9 mg/dL (0.5-1.5); Est. Creatinine Clearance* 59.11; Estimated Glomerular Filt Rate 76 ml/min
[2025-06-24 14:23] LABS: Alanine Aminotransferase* 28 U/L (4-35); Alkaline Phosphatase* 74 U/L (40-150); Anion Gap 7 mEq/L (7-15); Aspartate Amino Transferase* 31 U/L (12-35); Bilirubin Direct* 0.2 mg/dL (0.0-0.5); Bilirubin Total* 0.7 mg/dL (0.1-1.5); Calcium* 8.7 mg/dL (8.4-10.6); Carbon Dioxide* 24 mmol/L (20-32); Glucose* 103 mg/dL (60-115); Total Protein* 7.0 g/dL (6.0-8.3)
[2025-06-24] MEDS: MORPHINE 4 MG/ML INJ IVP (14:28)
[2025-06-24] MEDS: ONDANSETRON 2 MG/ML inj 4 MG IVP ×2 (14:28→16:46)
--- NOTE | 2025-06-24 14:37 | CRLHL7_ITS ---
For Patients: As a result of the Century Cures Act, medical imaging exams and procedure reports are released immediately into your electronic medical record. You may view this report before your referring provider. If you have questions, please contact your health care provider. INDICATION: Right upper abdominal pain. TECHNIQUE: CT abdomen and pelvis acquired with 106 cc Omnipaque 350 IV contrast. COMPARISON: Abdominal ultrasound June 24, [address] abdomen pelvis without contrast September 20, 2024 FINDINGS: Lower chest: Unremarkable. Liver: Diffuse hypoattenuation which could be affected hepatic steatosis. Gallbladder and bile ducts: Punctate hyperdensity in the gallbladder likely reflective of gallstone. Dilatation of the common bile duct measuring up to 8 millimeters with abrupt tapering at the pancreas. Pancreas: Unremarkable Spleen: Unremarkable Adrenal glands: Unremarkable Kidneys: Subcentimeter hypodensities too small to characterize. GI tract: Unremarkable. Normal appendix. Vasculature: Abdominal aorta is normal in caliber. Lymph nodes: Mildly prominent left inguinal lymph node. Peritoneum/Abdominal Wall: Unremarkable Pelvis: Enhancing focus in the uterus, which could be reflective of a fibroid. Bones: No acute findings. IMPRESSION: Dilatation of the common bile duct measuring up to 8 millimeters with abrupt tapering at the level of the pancreas. Recommend further evaluation with dedicated MRCP to rule out choledocholithiasis or underlying pancreatic head lesion. Cholelithiasis. Enhancing focus in the uterus which could be reflective of a fibroid. Recommend dedicated pelvic MRI for further evaluation. Please note that all CT scans at this facility use dose modulation, iterative reconstruction, and/or weight-based dosing when appropriate to reduce radiation dose to as low as reasonably achievable. Dictated by Quinn Hurley MD @ 06/24/2025 4:10:36 PM (Electronically Signed)
[2025-06-24 15:21] LABS: PCR FLU A Negative PCR FLU A (Negative); PCR FLU B Negative PCR FLU B (Negative); PCR RSV Negative PCR RSV (Negative); SARS PCR* Negative SARS-CoV-2 (Negative)
[2025-06-24 15:39] LABS: Appearance Urine Clear (Clear)
--- NOTE | 2025-06-24 16:23 | CRLHL7_ITS ---
For Patients: As a result of the Century Cures Act, medical imaging exams and procedure reports are released immediately into your electronic medical record. You may view this report before your referring provider. If you have questions, please contact your health care provider. INDICATION: CBD dilation COMPARISON: None. TECHNIQUE: Mulitplanar, mutliparametric MR imaging of the abdomen without intravenous contrast. MRCP sequences were obtained, including 3D MRCP. FINDINGS: Lower chest: Unremarkable Liver: Hepatic steatosis. Gallbladder: Distended gallbladder. No evidence cholelithiasis. Gallbladder polyp seen on the same-day ultrasound are not well visualized on this exam. Bile ducts: Mildly dilated intra and extrahepatic biliary ducts, with the common bile duct measuring up to 0.8 centimeters. No evidence of choledocholithiasis. Spleen: Unremarkable. Pancreas: Unremarkable. No evidence of pancreatic mass or pancreatic ductal dilation on this noncontrast exam. Adrenal glands: Unremarkable. Kidneys and Ureters: Unremarkable. Lymph Nodes: No enlarged lymph nodes. Vasculature: Unremarkable. Bowel: No obstruction. Peritoneum: Unremarkable. Abdominal wall: Unremarkable Bones: Unremarkable. IMPRESSION: Mildly dilated intra and extrahepatic biliary ducts. No evidence of choledocholithiasis. If LFTs are abnormal, this can be seen with sphincter of Oddi dysfunction. Hepatic steatosis. Dictated by Tessa Kovacs MD @ 06/24/2025 6:24:27 PM (Electronically Signed)
[2025-06-24] MEDS: ACETAMINOPHEN INJ 1,000 MG/100 ML VIAL 400 MG IVPB (17:40)
[2025-06-24] MEDS: PIPERACILLIN/TAZOBACTAM 3.375 GM in 0.9 % SODIUM CHLORIDE Mini-bag 100 ML IVPB (19:12)
[2025-06-24] MEDS: LACTATED RINGERS 1000 ML 1,000 ML 75 ML IV (20:58)
[2025-06-25 00:10] VITALS: TEMP 37
[2025-06-25] MEDS: ACETAMINOPHEN 500 MG TABLET 1000 MG PO (00:10)
== END 2025-06-25 02:16 | disposition short-term general hospital (02) ==
PROVIDERS: Family Medicine; Emergency Provider Family Medicine; PCP Family Medicine
DX: R10.11 Right upper quadrant pain (principal); K83.8 Other specified diseases of biliary tract; R51.9 Headache, unspecified; R11.0 Nausea
CPT/HCPCS: 36415; 74177; 74181; 76705; 80048; 80076; 81001; 83605; 83690; 84484; 85025; 86140; 87631; 93005; 94761; 96361; 96365; 96367; 96375; 96376; 99285; A9270; J0131; J2270; J2405; J2543; J7030; J7120; Q9967

== ENCOUNTER 2025-06-25 01:58 | Outpatient (CLI) | payer OTHER, SELFPAY | END 2025-06-25 01:59 | disposition home or self-care (01) | LOC: AMB 06-30 04:26 | PROVIDERS: PCP Family Medicine; Visit Provider Family Medicine | DX: R10.11 Right upper quadrant pain (principal) | CPT/HCPCS: A0425; A0429 ==